=== PATIENT | female | born 1985 | race Asian ===

== ENCOUNTER 2023-10-16 22:44 | Emergency (ER) | payer OTHER, SELFPAY ==
[2023-10-16 22:51] VITALS: BP 157/92; PULSE 79; RESP 16; TEMP 36.6; O2SAT 98; BMI 35.1
--- NOTE | 2023-10-16 23:09 | ED.GENADULT ---
HPI - General Adult General Chief complaint: Extremity Injury, Upper Stated complaint: resident fell on her. left side pain neck to toes Time Seen by Provider: 10/16/23 22:51 Source: patient Mode of arrival: Ambulatory History of Present Illness HPI narrative: Patient is here for evaluation approximately 5 days after having an incident while she was at work. 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 She states that the resident fell. She caught her left shoulder. She crumpled down with the resident landing on top of her. She states she is sore across her upper back. Sore across the top of her left shoulder. Also sore across her lower back with some discomfort radiating down her left leg. She actually thought things were improving a couple days after the event but now soreness has started back again. Related Data Previous Rx's Medication Instructions Recorded sertraline 25 mg tablet 25 mg PO DAILY #30 tabs 10/21/18 scopolamine base 1 mg over 3 days 1 patch transdermal Q3D PRN motion 01/04/19 transdermal patch sickness #2 ea Allergies Allergy/AdvReac Type Severity Reaction Status Date / Time No Known Drug Allergies Allergy Unknown Verified 10/16/23 23:02 [NO KNOWN DRUG ALLERGIES] Review of Systems Review of Systems ROS Unobtainable: All systems reviewed & are unremarkable except as noted in HPI and below Patient History Medical History Status post delivery (09/22/17) White classification A2 gestational diabetes mellitus (GDM) (08/01/17) Social History marital status: Smoking Status: Current every day smoker alcohol intake: current (ON OCCASION ) substance use type: does not use Smoking Status: Current every day smoker tobacco type: cigarettes Substance Use Type: does not use Exam Initial Vital Signs Initial Vital Signs: Vital Signs Temperature 97.9 F 10/16/23 22:51 Pulse Rate 79 10/16/23 22:51 Respiratory Rate 16 10/16/23 22:51 Blood Pressure 157/92 H 10/16/23 22:51 Pulse Oximetry 98 10/16/23 22:51 Oxygen Delivery Method Room Air 10/16/23 22:51 Const General: cooperative, comfortable and No ill appearing HENME Head: normal to inspection and normocephalic Resp Effort & Inspection: normal respiratory effort Cardio Rate: regular rate Back/Spine/Pelvis Other: Discomfort to palpation across the upper portion of both shoulders and upper back. Some mild discomfort to palpation of the lumbar spine Skin General: no rashes or lesions noted Neuro General: patient alert, patient awake and moves all extremities Extrem General: normal to inspection and capillary refill normal Course Orders Ordered: Discontinued Medications Cyclobenzaprine HCl (Cyclobenzaprine 10 Mg Prepack) 1 bottle MISC DIRECTED ONE Stop: 10/16/23 23:11 Last Admin: 10/16/23 23:17 Dose: 1 bottle Documented By: LYRIC Vital Signs Vital signs: Vital Signs - 8 hr 10/16/23 22:51 Temperature 97.9 F Pulse Rate 79 Respiratory Rate 16 Blood Pressure 157/92 H Pulse Oximetry 98 Oxygen Delivery Method Room Air Medical Decision Making MDM Narrative Medical decision making narrative: Event happened approximately a little less than 1 week ago. I suspect all of her symptoms are muscular in origin. Low suspicion for fracture. There was no indication for any radiologic studies. We discussed anti-inflammatories. Discussed other conservative measures. Will send home with a prescription for muscle relaxers. She was given return precautions. She expressed understanding and agreement. Discharge Plan Departure Patient Disposition: Home Clinical Impression: Muscle strain Instructions: DI for Muscle Strain Activity Restrictions/Additional Instructions: I do recommend continued conservative measures to include heat/ice and light stretching. Naproxen is appropriate as well. Use the muscle relaxers as needed. Return to the emergency department for new symptoms. Prescriptions: No Action scopolamine base 1 mg over 3 days patch 3 day 1 patch transdermal Q3D PRN (Reason: motion sickness) Qty: 2 0RF sertraline 25 mg tablet 25 mg PO DAILY Qty: 30 2RF Referrals: Miscellaneous,Doctor, MD [Primary Care Provider] - Stand Alone Forms: Patient Portal/API
[2023-10-16] MEDS: CYCLOBENZAPRINE 10 MG PREPACK 1 BOTTLE MISC (23:17)
== END 2023-10-16 23:27 | disposition home or self-care (01) ==
PROVIDERS: Emergency Provider Emergency Medicine
DX: S29.012A Strain of muscle and tendon of back wall of thorax, initial encounter (principal); X58.XXXA Exposure to other specified factors, initial encounter; Y99.0 Civilian activity done for income or pay
CPT/HCPCS: 99281; 99283